=== PATIENT | female | born 2005 | race Caucasian/White ===

== ENCOUNTER 2025-01-31 12:25 | Emergency (ER) | payer BC ==
[2025-01-31] MEDS ORDERED: Ibuprofen 800 MG TAB ONE (12:57)
== END 2025-01-31 14:41 | disposition home or self-care (01) ==
LOC: ERS 12:25
DX: S63.610A Unspecified sprain of right index finger, initial encounter (principal); S63.612A Unspecified sprain of right middle finger, initial encounter; W54.8XXA Other contact with dog, initial encounter
CPT/HCPCS: 99283